=== PATIENT | female | born 1955 | race Caucasian/White ===

== ENCOUNTER 2016-12-06 15:41 | Emergency (ER) | payer OTHER ==
[2016-12-06 15:47] VITALS: BP 102/61
[2016-12-06] MEDS ORDERED: Tetan/Diph/Pertus SYR(Tdap)* 0.5 ML SYR(BOOSTRIX) use SYR IM ONE (15:50)
--- NOTE | 2016-12-06 15:52 | UC ---
Skin Complaint HPI - HPI Summary HPI Summary: scraped left calf on a gildardo piece of metal at 3:15 pm. concerned as she has not had a tetanus vaccine for 20 years - History of Current Complaint Chief Complaint: UCSkin Time Seen by Provider: 12/06/16 15:47 Stated Complaint: TETNAS BOOSTER Hx Obtained From: Patient ?: No Onset/Duration: Sudden Onset, Still Present Skin Exposure Onset/Duration: Hours Ago - 1 Timing: Constant Onset Severity: Mild Current Severity: Mild Pain Intensity: 1 Pain Scale Used: 0-10 Numeric - 1 Location: Discrete - left lateral lower leg Aggravating: Nothing Alleviating: Nothing Associated Signs & Symptoms: Positive: Negative - Allergy/Home Medications Allergies/Adverse Reactions: Allergies Allergy/AdvReac Type Severity Reaction Status Date / Time No Known Allergies Allergy Verified 12/06/16 15:46 Review of Systems Constitutional: Negative Skin: Other - 4 inch linear abrasion left lateral calf no bleeding Eyes: Negative ENT: Negative Respiratory: Negative Cardiovascular: Negative Gastrointestinal: Negative Genitourinary: Negative Motor: Negative Neurovascular: Negative Musculoskeletal: Negative Neurological: Negative Psychological: Negative All Other Systems Reviewed And Are Negative: Yes PMH/Surg Hx/FS Hx/Imm Hx Previously Healthy: Yes - Surgical History Surgical History: None - Family History Known Family History: Positive: None Family History: no cardio vascular issues in family lineage - Social History Occupation: Employed Full-time Lives: With Family Alcohol Use: None Substance Use Type: None Have You Smoked in the Last Year: No - Immunization History Hx Tetanus, Diphtheria Vaccination: Yes - last vaccine about 20 years ago Physical Exam Triage Information Reviewed: Yes Appearance: Well-Appearing, No Pain Distress, Well-Nourished Vital Signs: Initial Vital Signs Temp 99.5 F 12/06/16 15:46 Pulse 84 12/06/16 15:46 Resp 16 12/06/16 15:46 BP 102/61 12/06/16 15:46 Vital Signs Reviewed: Yes Eye Exam: Normal Eyes: Positive: Conjunctiva Clear ENT Exam: Normal ENT: Positive: Normal ENT inspection, Hearing grossly normal. Negative: Nasal congestion, Nasal drainage, Trismus, Muffled/hoarse voice Dental Exam: Normal Neck exam: Normal Neck: Positive: Supple, Nontender Respiratory Exam: Normal Respiratory: Positive: Chest non-tender, No respiratory distress, No accessory muscle use Cardiovascular Exam: Normal Cardiovascular: Positive: RRR, Pulses Normal, Brisk Capillary Refill Musculoskeletal Exam: Normal Musculoskeletal: Positive: Strength Intact, ROM Intact, No Edema Neurological Exam: Normal Neurological: Positive: Alert, Muscle Tone Normal Psychological Exam: Normal Skin: Positive: Other - 4 inch horizontal abrasion with no active bleeding left lateral calf Course/Dx - Course Course Of Treatment: up date tetanus, soap and water wash follow with pcp prn - Differential Diagnoses - Skin Complaint Differential Diagnoses: Cellulitis, Impetigo, Local Allergic Reaction - Diagnoses Provider Diagnoses: Abrasion left lower leg, up date tetanus Discharge - Discharge Plan Condition: Good Disposition: HOME Patient Education Materials: Abrasion (ED), Diphtheria/Acellular Pertussis/ Tetanus Booster Vaccine (By injection) Referrals: Toshia Burton [employer] [Primary Care Provider] - If Needed
== END 2016-12-06 16:02 | disposition home or self-care (01) ==
LOC: UCEAST 15:41
DX: S80.812A Abrasion, left lower leg, initial encounter (principal); W22.8XXA Striking against or struck by other objects, initial encounter; Y92.9 Unspecified place or not applicable
CPT/HCPCS: 90471; 90715; 99212; G0463

== ENCOUNTER 2018-09-15 19:19 | Emergency (ER) | payer OTHER ==
[2018-09-15 19:29] VITALS: BP 122/66
--- NOTE | 2018-09-15 19:32 | UC ---
Complaint Female HPI - HPI Summary HPI Summary: 62 y/o female presents to the urgent care c/o frequency and burning on urination for the past 2 days/. Today she developed mild lower back pain RT>LF. Burning on urination is 6/10. She has been drinking a lot of water. Pt has not taken any medications to alleviate symptoms. Pt denies flank pain, fever, SOB, chest pain, abdominal pain, N/V/D. - History Of Current Complaint Chief Complaint: UCBackPain Stated Complaint: URINARY COMPLAINT Time Seen by Provider: 09/15/18 19:28 Hx Obtained From: Patient Hx Last Menstrual Period: total hyster ?: No Onset/Duration: Gradual Onset, Lasting Days - 2 days, Still Present, Worse Since - today w/ mild lower back pain Timing: Lasting Days - 2 days Severity Initially: Mild Severity Currently: Moderate Pain Intensity: 6 Pain Scale Used: 0-10 Numeric Character: Burning Aggravating Factor(s): Urination Associated Signs And Symptoms: Positive: Back Pain - lower back pain R>LF. Negative: Fever, Vaginal Discharge, Nausea, Vomiting(# Of Episodes =) - Risk Factors Ectopic Risk Factor: Negative Ovarian Torsion Risk Factor: Negative - Allergies/Home Medications Allergies/Adverse Reactions: Allergies Allergy/AdvReac Type Severity Reaction Status Date / Time No Known Allergies Allergy Verified 09/15/18 19:29 Home Medications: Home Medications Estradiol PATCH 0.075/DAY* [Climara PATCH 0.075 MG/DAY*] 1 patch TOPICAL WEEKLY 09/15/18 [History Confirmed 09/15/18] PMH/Surg Hx/FS Hx/Imm Hx Previously Healthy: Yes - Pt denies PMHX - Surgical History Surgical History: Yes Surgery Procedure, Year, and Place: hysterectomy total - Family History Known Family History: Positive: Cardiac Disease, Hypertension, Diabetes Family History: dyslipidemia - Social History Occupation: Employed Full-time Lives: With Family Alcohol Use: None Substance Use Type: None Smoking Status (MU): Former Smoker Have You Smoked in the Last Year: No - Immunization History Hx Tetanus, Diphtheria Vaccination: Yes - last vaccine about 20 years ago Review of Systems All Other Systems Reviewed And Are Negative: Yes Constitutional: Positive: Negative Skin: Positive: Negative Eyes: Positive: Negative ENT: Positive: Negative Respiratory: Positive: Negative Cardiovascular: Positive: Negative Gastrointestinal: Positive: Negative Genitourinary: Positive: Dysuria, Frequency, Urgency Motor: Positive: Negative Neurovascular: Positive: Negative Musculoskeletal: Positive: Other: - mild lower back pain RT>LF Neurological: Positive: Negative Psychological: Positive: Negative Is Patient Immunocompromised?: No Physical Exam - Summary Physical Exam Summary: VITAL SIGNS: Reviewed. GENERAL: Patient is a well developed and nourished female who is sitting comfortable in the examining table. Patient is not in any acute respiratory distress. HEAD AND FACE: No signs of trauma. No ecchymosis, hematomas or skull depressions. No sinus tenderness. EYES: PERRLA, EOMI x 2, No injected conjunctiva, clear watery eyes, no nystagmus. No photophobia. EARS: Hearing grossly intact. Ear canals and tympanic membranes are within normal limits. MOUTH: pharynx with no erythema, no exudates,no palatal petechiae. no B/L tonsillar enlargement Uvula in midline. NECK: Supple, trachea is midline, no lymphadenopathy, no JVD, no carotid bruit, no c-spine tenderness, neck with full ROM. CHEST: Symmetric, no tenderness at palpation LUNGS: Clear to auscultation bilaterally. No wheezing or crackles. CVS: Regular rate and rhythm, S1 and S2 present, no murmurs or gallops appreciated. ABDOMEN: Soft, non-tender. No signs of distention. No rebound no guarding, and no masses palpated. Bowel sounds are normal. BACK:no scoliosis or lesions, non tender to palpation, No B/L CVA tenderness EXTREMITIES: FROM in all major joints, no edema, no cyanosis or clubbing. NEURO: Alert and oriented x 3. No acute neurological deficits. Speech is normal and follows commands. SKIN: Dry and warm Triage Information Reviewed: Yes Vital Signs: Initial Vital Signs Temp 99.5 F 09/15/18 19:23 Pulse 76 09/15/18 19:23 Resp 16 09/15/18 19:23 BP 122/66 09/15/18 19:23 Pulse Ox 98 09/15/18 19:23 Complaint Female Dx - Course Course Of Treatment: 62 y/o female presents to the urgent care c/o frequency and burning on urination for the past 2 days/. Today she developed mild lower back pain RT>LF. Burning on urination is 6/10. She has been drinking a lot of water. Pt has not taken any medications to alleviate symptoms. Pt denies flank pain, fever, SOB, chest pain, abdominal pain, N/V/D. Hx obtained. PE:WNL no B/L CVA tenderness on examination. UA results: Blood 3+, Nitrates Positive, Leukoesterase 3+. Pt Rx ciprofloxacin PO x 7 days. Pyridium 100mg PO TID x 2 days. Advised to increase fluid intake. Urine sent for culture if any abnormality Pt will be notified for further treatment. Pt advised If symptoms do not improve to return to the urgent care or f/u with PCP. Pt understood and agreed. Left the clinic ambulating. - Differential Dx/Diagnosis Differential Diagnosis/HQI/PQRI: Cervicitis, Pelvic Inflammatory Disease, Renal Colic, Ureteral Stone, Urinary Tract Infection Provider Diagnosis: UTI (urinary tract infection), Dysuria Discharge - Sign-Out/Discharge Documenting (check all that apply): Patient Departure - D/C home All imaging exams completed and their final reports reviewed: No Studies - Discharge Plan Condition: Stable Disposition: HOME Prescriptions: Ciprofloxacin TAB* [Cipro 500 MG TAB*] 500 mg PO BID #14 tab Phenazopyridine TAB* [Pyridium 100 mg TAB*] 100 mg PO TID #6 tab Patient Education Materials: Urinary Tract Infection in Women (ED) Referrals: Heather Camacho MD [Primary Care Provider] - 2 Days Additional Instructions: 1- Please take Ciprofloxacin PO x 7 days. Pyridium 100 mg PO TID x 2 days to alleviate urinary symptoms. Increase increase fluid intake. drink cranberry juice. 2-Urine sent for culture if any abnormality, you will be notified for further treatment. 3-If symptoms worsen and your develop fever, flank pain, despite taking antibiotic please go immediately to the ER for further management. otherwise If symptoms do not improve please f/u with PCP in 3 days for further management . - Billing Disposition and Condition Condition: STABLE Disposition: Home
== END 2018-09-15 20:25 | disposition home or self-care (01) ==
LOC: UCEAST 19:19
DX: N39.0 Urinary tract infection, site not specified (principal); R30.0 Dysuria; Z87.891 Personal history of nicotine dependence
CPT/HCPCS: 81003; 87077; 87086; 87186; 99212; G0463